=== PATIENT | male | born 1945 | race Caucasian/White ===

== ENCOUNTER 2017-02-08 10:10 | Day surgery (SDC) | payer MEDICARE, OTHER ==
--- NOTE | ~2017-02-08 | EGD ---
EGD REPORT [facility] [address] [address] NAME: LAURYN GOLDBERG : [birth year] STATUS : REG [facility]#: [id number] AGE: 71 ADM/REG DATE : 02/08/17 MR#: [id number] REPORT SERV DATE: 02/08/17 DICTATED BY: SARAH ROSALES DATE: 02/08/17 REPORT STATUS : Draft TRANSCRIBED BY: [facility] DATE: 02/08/17 Endoscopy Center Patient Name: Lauryn Goldberg Date of : 1945 Attending MD: SARAH ROSALES MD Procedure Date No Time: 02/08/2017 Procedure: Upper GI endoscopy Indications: Heartburn, Suspected esophageal reflux, Nausea with vomiting Referring MD: ADRIÁN GIPSON Medicines: as per anesthesia Complications: No immediate complications. Procedure: After obtaining informed consent, the endoscope was passed under direct vision. Throughout the procedure, the patient's blood pressure, pulse, and oxygen saturations were monitored continuously. The GIF [id number] was introduced through the mouth, and advanced to the third part of duodenum. The upper GI endoscopy was accomplished without difficulty. The patient tolerated the procedure. Findings: A single 4 mm polyp was found in the lower third of the esophagus. Biopsies were taken with a cold forceps for histology. The entire examined stomach was normal. The cardia and gastric fundus were normal on retroflexion. The examined duodenum was normal. Impression: - Esophageal polyp(s) were found. Biopsied. - Normal stomach. - Normal examined duodenum. Recommendation: - Await pathology results. - Follow an antireflux regimen. - Continue present medications. Procedure Code(s): --- Professional --- 94478, Esophagogastroduodenoscopy, flexible, transoral; with biopsy, single or multiple Diagnosis Code(s): --- Professional --- K22.8, Other specified diseases of esophagus R12, Heartburn R11.2, Nausea with vomiting, unspecified EGD REPORT [facility] [address] [place] [address] NAME: LAURYN GOLDBERG : [birth year] STATUS : REG [facility]#: [id number] AGE: 71 ADM/REG DATE : 02/08/17 MR#: [id number] REPORT SERV DATE: 02/08/17 DICTATED BY: SARAH ROSALES. DATE: 02/08/17 REPORT STATUS : Draft TRANSCRIBED BY: [employer] DATE: 02/08/17 CPT copyright 2013 [employer]. All rights reserved. The codes documented in this report are preliminary and upon water treatment plant repairer review may be revised to meet current compliance requirements. SARAH ROSALES MD 02/08/2017 1:50 PM This report has been signed electronically. Number of Addenda: 0 Note Initiated On: 02/08/2017 1:20 PM Scope Withdrawal Time 0 hours 0 minutes 0 seconds [address] [address]
[~2017-02-08 10:10] MED LIST: ASA5GR PO; AT25 PO; C5 PO; CARTIA XT120 MG/24 PO; DSS PO; ENDOCET1 TA3 PO; GLUCPH PO; LEVSINTAB PO; LEVSINTAB SL; LOP100 PO; NEXIUM40 PO; OXYCON20 PO; OXYCON80 PO; OXYCONTIN60 MG PO; PERCOCET1 TA4 PO; PR25 PO; PROTONIX PO; ROXICODONE15 MG PO; SODBICAR10 PO; VITAMIN D31000 UNIT PO; VITAMIN D400 UNI1 PO; ZOFRAN8 PO; ZOL100 PO
== END 2017-02-08 23:59 | disposition home or self-care (01) ==
LOC: DMU 10:10
PROVIDERS: Internal Medicine Gastroenterology
PROC: 0DB38ZX Excision of Lower Esophagus, Via Natural or Artificial Opening Endoscopic, Diagnostic (ICD-10-PCS; principal; 2017-02-08 12:00)
DX: D13.0 Benign neoplasm of esophagus (principal); R12 Heartburn; R11.2 Nausea with vomiting, unspecified; C67.9 Malignant neoplasm of bladder, unspecified; E11.22 Type 2 diabetes mellitus with diabetic chronic kidney disease; I12.9 Hypertensive chronic kidney disease with stage 1 through stage 4 chronic kidney disease, or unspecified chronic kidney disease; N18.9 Chronic kidney disease, unspecified; Z79.899 Other long term (current) drug therapy; Z79.891 Long term (current) use of opiate analgesic
CPT/HCPCS: 88305